=== PATIENT | male | born 1955 | race Caucasian/White ===

== ENCOUNTER 2016-10-10 15:46 | Inpatient (IN) | payer OTHER ==
[~2016-10-10] VITALS: Ht 160 cm; Wt 110.0 kg
[2016-10-10 17:15] LABS: ADD SCAN DIFF NO
[2016-10-10 17:21] LABS: ABNORMAL IP MESSAGE 1; HEMATOCRIT 23.6 % (42.0-52.0); MEAN CORPUSCULAR HEMOGLOBIN 16.7 pg (29.0-33.0); MEAN CORPUSCULAR HGB CONC 25.8 g/dl (32.0-37.0); MEAN CORPUSCULAR VOLUME 64.7 fl (82.0-101.0); MEAN PLATELET VOLUME 9.4 fl (7.4-10.4); PLATELET COUNT 339 10^3/UL (140-415); RED BLOOD COUNT 3.65 10^6/ul (4.70-6.10); WHITE BLOOD COUNT 7.9 10^3/ul (4.8-10.8)
[2016-10-10 17:23] LABS: HEMOGLOBIN 6.1 g/dl (14.0-18.0)
[2016-10-10 17:33] LABS: INR 1.1; PROTIME 14.2 Sec (12.2-14.2); PT RATIO 1.1
--- NOTE | 2016-10-10 17:33 | ERA ---
ER Documentation Chief Complaint Date/Time DATE: 10/10/16 TIME: 17:32 Chief Complaint CHEST PAIN AND SOB X 10 DAYS HPI 61-year-old man complains of sharp nonexertional nonradiating chest pain and dyspnea on exertion for about 2 weeks. He also complains of generalized weakness 1 week, he denies recent calf or leg swelling, no fevers or chills, no blood per rectum or melena, no abdominal pain, no vomiting or diarrhea. ROS All systems reviewed and are negative except as per history of present illness. PMhx/Soc Obesity, hypertension Hx Alcohol Use: No Hx Substance Use: No Hx Tobacco Use: No Smoking Status: Never smoker FmHx Family History: No diabetes Physical Exam Vitals Vital Signs Date Time Temp Pulse Resp B/P Pulse Ox O2 Delivery O2 Flow Rate FiO2 10/10/16 15:50 99.2 89 18 131/68 98 Physical Exam GENERAL: Well-developed, well-nourished, well-hydrated, in no apparent distress , looks nontoxic in appearance, afebrile HEENT: Pale conjunctiva, no cervical spine tenderness or step-off deformities, no goiter, no jaundice or icterus, extraocular movements intact without pain. No submandibular induration, and no pharyngeal erythema NEURO: Alert and oriented 3, cranial nerves II through XII intact bilaterally, pupils equal round reactive to light, no focal deficits or facial asymmetry, sensation intact distally Strength 5/5 in upper and lower extremities bilaterally CARDIAC: Regular rate and rhythm, no murmurs rubs or gallops LUNGS: Clear bilaterally no wheezing crackles or stridor ABDOMEN: Soft nontender, no guarding, no rigidity, no rebound, no psoas sign no obturator sign. Normoactive bowel sounds SKIN: Warm and dry to touch, no abrasions, contusions, or hematomas, no lacerations, no ecchymosis, no target lesions, and without ulcers EXTREMITIES: 3+ pitting edema in the lower extremities bilaterally, calves are bilaterally symmetrical no Homans sign, no popliteal cord sign. Distal pulses equal and bilateral PSYCH: Normal affect without agitation or irritability Result Diagram: 10/10/16 1656 10/10/16 1656 Results 24 hrs Laboratory Tests Test 10/10/16 16:56 White Blood Count 7.910^3/ul Red Blood Count 3.6510^6/ul Hemoglobin 6.1g/dl Hematocrit 23.6% Mean Corpuscular Volume 64.7fl Mean Corpuscular Hemoglobin 16.7pg Mean Corpuscular Hemoglobin Concent 25.8g/dl Red Cell Distribution Width 20.0% Platelet Count 45818^3/UL Mean Platelet Volume 9.4fl Prothrombin Time 14.2Sec Prothrombin Time Ratio 1.1 INR International Normalized Ratio 1.10 Sodium Level 140mmol/L Potassium Level 4.1mmol/L Chloride Level 108mmol/L Carbon Dioxide Level 26mmol/L Anion Gap 10 Blood Urea Nitrogen 15mg/dl Creatinine 0.77mg/dl Glucose Level 107mg/dl Calcium Level 8.8mg/dl Total Bilirubin 0.9mg/dl Direct Bilirubin 0.00mg/dl Indirect Bilirubin 0.9mg/dl Aspartate Amino Transf (AST/SGOT) 18IU/L Alanine Aminotransferase (ALT/SGPT) 25IU/L Alkaline Phosphatase 114IU/L Troponin I < 0.012ng/ml B-Type Natriuretic Peptide 153PG/ML Total Protein 7.0g/dl Albumin 4.2g/dl Globulin 2.80g/dl Albumin/Globulin Ratio 1.50 Lipase 84U/L Procedures/MDM IV line was established patient was placed on surveillance monitor rhythm strip revealed a sinus rhythm at about 80 bpm with upright P and T waves. Patient was afebrile. EKG performed, read by me: 88 bpm, normal sinus rhythm, normal axis, no acute ST segment changes, narrow QRS complex, with good R-wave progression in precordial leads. Chest X-ray 1V Interpreted by me: Soft Tissue: No acute abnormalities Bones: No acute abnormalities Mediastinum/Cardiac Silhouette/Lungs: Cardiomegaly although mediastinum otherwise unremarkable CBC revealed anemia with a hemoglobin of 6.1, electrolytes were unremarkable, liver function tests were normal, troponin was negative. Coagulation profile was normal. I ordered transfusion and 2 units of PRBCs IV over 2 hours for severe symptomatic anemia. Critical Care: Time: 40 minutes, this was time separate from other procedures. Treatments/Evaluations: Close monitoring and treatment of unstable vital signs, cardiorespiratory, and neurologic status, while maintaining tight balance of fluid, respiratory, and cardiac interventions. Patient will be admitted to telemetry setting for complaints of chest pain and severe anemia. Departure Diagnosis: Primary Impression: Chest pain Qualified Code: R07.9 - Chest pain, unspecified type Additional Impressions: Anemia Qualified Code: D64.9 - Anemia, unspecified type Peripheral edema Condition: DAVIAN Sanders MD Oct 10, 2016 17:33
[2016-10-10 17:39] LABS: ALANINE AMINOTRANSFERASE 25 IU/L (13-69); ALBUMIN 4.2 g/dl (3.3-4.9); ALKALINE PHOSPHATASE 114 IU/L (42-121); ANION GAP 10 (8-16); ASPARTATE AMINO TRANSFERASE 18 IU/L (15-46); BILIRUBIN,INDIRECT 0.9 mg/dl (0-1.1); BILIRUBIN,TOTAL 0.9 mg/dl (0.2-1.3); BLOOD UREA NITROGEN 15 mg/dl (7-20); CALCIUM 8.8 mg/dl (8.4-10.2); CARBON DIOXIDE 26 mmol/L (21-31); CHLORIDE 108 mmol/L (97-110); CREATININE 0.77 mg/dl (0.61-1.24); GLUCOSE 107 mg/dl (70-220); POTASSIUM 4.1 mmol/L (3.5-5.1); SODIUM 140 mmol/L (135-144)
--- NOTE | 2016-10-10 17:50 | RADRPT ---
PROCEDURE: Chest x-ray CLINICAL INDICATION: Chest pain TECHNIQUE: Chest single view COMPARISON: None FINDINGS: There is right IJ Port-A-Cath. Heart. Normal in size. Pulmonary vessels are normal in caliber. T here is minimal basilar atelectasis. Lungs otherwise clear. Costophrenic angles are sharp. There is degenerative change of bilateral acromioclavicular joints. There is right rotator cuff calcific tendinosis. IMPRESSION: 1. Mild bibasilar atelectasis. Otherwise no acute cardiopulmonary disease. 2. Port-A-Cath in place. 3. Other findings as detailed RPTAT: HH .Mykel Forrest MD, Date Time Electronically viewed and signed by .Mykel Forrest MD, on 10/10/2016 17:50 .W/
[2016-10-10 17:51] LABS: B-TYPE NATRIURETIC PEPTIDE 153 PG/ML (0-125); TROPONIN-I < 0.012 ng/ml (0.00-0.12)
[2016-10-10 18:06] LABS: BASOPHIL # 0.1 10^3/ul (0.0-0.1); EOSINOPHILS # 0.2 10^3/ul (0.0-0.5); LYMPHOCYTES # 1.7 10^3/ul (0.8-2.9); MONOCYTE # 0.6 10^3/ul (0.3-0.9); NEUTROPHIL # 5.3 10^3/ul (1.6-7.5)
[2016-10-10 18:07] LABS: HYPOCHROMASIA 2+; MICROCYTOSIS 2+
[2016-10-10 19:20] LABS: IRON 20 ug/dl (35-150)
[2016-10-10 19:35] LABS: TOTAL IRON BINDING CAPACITY 442 ug/dl (241-421)
[2016-10-10 21:00] VITALS: TEMP 98.3
[2016-10-10 21:15] VITALS: PULSE 68
[2016-10-10 21:29] VITALS: BP 137/77; RESP 20
[2016-10-10 22:01] VITALS: Ht 160 cm; Wt 110.0 kg
[2016-10-10] MEDS ORDERED: morphine 2 MG INJ IV PRN (23:00)
[2016-10-10] MEDS ORDERED: ONDANSETRON 4 MG INJ IV PRN (23:00)
[2016-10-10] MEDS ORDERED: ACETAMINOPHEN 325 MG TAB PO PRN (23:00)
[2016-10-11] VITALS (12 sets, daily range): BP systolic 117–133; BP diastolic 61–78; PULSE 65–75; RESP 16–66
[2016-10-11] MEDS: PANTOPRAZOLE (EC) 40 MG TAB PO SCH (05:17)
[2016-10-11 07:45] LABS: ADD SCAN DIFF NO
[2016-10-11 07:49] LABS: ABNORMAL IP MESSAGE 1; BASOPHIL # 0.1 10^3/ul (0.0-0.1); BASOPHILS % 0.8 % (0.0-2.0); EOSINOPHILS # 0.2 10^3/ul (0.0-0.5); EOSINOPHILS % 3.4 % (0.0-7.0); HEMOGLOBIN 7.7 g/dl (14.0-18.0); LYMPHOCYTES # 1.7 10^3/ul (0.8-2.9); LYMPHOCYTES % 23.2 % (15.0-51.0); MEAN CORPUSCULAR HEMOGLOBIN 18.5 pg (29.0-33.0); MEAN CORPUSCULAR HGB CONC 27.5 g/dl (32.0-37.0); MEAN CORPUSCULAR VOLUME 67.1 fl (82.0-101.0); MEAN PLATELET VOLUME 9.2 fl (7.4-10.4); MONOCYTE # 0.6 10^3/ul (0.3-0.9); NEUTROPHIL # 4.5 10^3/ul (1.6-7.5); NEUTROPHILS % 63.2 % (39.0-77.0); PLATELET COUNT 288 10^3/UL (140-415); RED BLOOD COUNT 4.17 10^6/ul (4.70-6.10); RED CELL DISTRIBUTION WIDTH 21.4 % (11.5-14.5); WHITE BLOOD COUNT 7.1 10^3/ul (4.8-10.8)
[2016-10-11 08:17] LABS: CALCIUM 8.3 mg/dl (8.4-10.2); CHOL/HDL RATIO 4.5 RATIO; CREATININE 0.73 mg/dl (0.61-1.24); POTASSIUM 4.1 mmol/L (3.5-5.1)
[2016-10-11] MEDS: FERROUS SULFATE (EC) 325 MG TAB PO SCH ×2 (09:03→21:03)
[2016-10-11] MEDS ORDERED: SOD CHLORIDE 0.9% 250 ML IV* ONE (09:52)
[2016-10-11] MEDS ORDERED: DOCUSATE SODIUM 100 MG CAP PO PRN (10:00)
[2016-10-11 12:57] LABS: CREATINE KINASE 66 IU/L (23-200)
[2016-10-11 13:15] LABS: CK-MB 0.27 ng/ml (0.0-2.4); TROPONIN-I < 0.012 ng/ml (0.00-0.12)
--- NOTE | 2016-10-11 13:39 | RADRPT ---
Echocardiogram Report Patient Name: YENY RENEE Gender: Male Date: 1955 Study Date: 11-Oct-2016 Sales Representative Printing Paper: Berna Borja [facility] Location: 5540 Ref. Physician: HIWOT BROWN Quality: Good Procedures: Transthoracic echocardiogram with complete 2D, M-Mode, and doppler examination. Indications: Chest Pain. 2D/M Mode Doppler Measurement Value Normal Ranges Measurement Value Normal Ranges LVIDd 2D 4.7 3.5 - 5.6 cm AV Peak Salvador 1.7 m/sec LVIDs 2D 2.8 2.1 - 4.1 cm AV Peak PG 12.0 mmHg FS 2D 41.0 % LVOT Peak Salvador 1.4 m/sec LVPWd 2D 0.9 0.6 - 1.1 cm LVOT Peak PG 8.0 mmHg IVSd 2D 1.1 0.6 - 1.1 cm MV E Peak Salvador 0.7 m/sec IVS/LVPW 2D 1.2 MV A Peak Salvador 1.1 m/sec AoR Diam 2D 3.4 2.0 - 3.7 cm MV E/A 0.7 LA/Ao 2D 1 0 - 1 MV Decel Time 257 msec EDV 2D 106.0 cm3 MV E/A 0.7 ESV 2D 21.7 cm3 TR Peak Salvador 2.2 m/sec LA Dimen 2D 3.2 2.3 - 4.0 cm TR Peak PG 19.0 mmHg RVSP 22.0 mmHg Findings Left Ventricle: Normal left ventricular systolic function. Normal left ventricular cavity size. Mild concentric left ventricular hypertrophy. Ejection fraction is visually estimated at 60 %. Tissue Doppler/Mitral Doppler indices are consistent with impaired relaxation (Stage I diastolic dysfunction). Right Ventricle: Normal right ventricular size. Normal right ventricular systolic function. Left Atrium: The left atrium is normal in size. Right Atrium: The right atrium is normal in size. Mitral Valve: Mitral valve leaflets appear mildly thickened. Mild mitral annular calcification. Trace mitral regurgitation. Aortic Valve: Normal appearance of the aortic valve. No significant aortic stenosis or insufficiency. Tricuspid Valve: Normal appearance of the tricuspid valve. Estimated peak PA systolic pressure 22 mmHg. There is trace tricuspid regurgitation. Pulmonic Valve: Normal pulmonic valve appearance. Pericardium: Normal pericardium with no significant pericardial effusion. Aorta: Normal aortic root. IVC: Normal size and normal respiratory collapse consistent with normal right atrial pressure. Conclusions Normal left ventricular systolic function. Normal left ventricular cavity size. Mild concentric left ventricular hypertrophy. Ejection fraction is visually estimated at 60 %. Tissue Doppler/Mitral Doppler indices are consistent with impaired relaxation (Stage I diastolic dysfunction). Normal right ventricular size. Normal right ventricular systolic function. The left atrium is normal in size. The right atrium is normal in size. No significant valvular stenosis or regurgitation seen. Normal pericardium with no significant pericardial effusion. Electronically Signed By: Marin Dang 11-Oct-2016 13:38:28 -0700 Patient Name: YENY RENEE Study Date: 11-Oct-2016 [id number]
--- NOTE | 2016-10-11 13:45 | CONS ---
Date/Time of Note Date/Time of Note DATE: 10/11/16 TIME: 13:40 Assessment/Plan Assessment/Plan Additional Assessment/Plan Chest pain Acute blood loss anemia, severe Preserved ejection fraction Colon cancer Hypertension -Patient with severe anemia with hemoglobin of 6. Serial troponins remain negative, ECG with no significant ischemic abnormalities, echocardiogram with preserved ejection fraction. His symptoms of lightheadedness and shortness of breath are improving after blood transfusion. Patient will colon cancer with last chemotherapy in June 2016 and with possible metastases to liver. Given patient with severe anemia and negative cardiac workup, of importance at the current time is blood transfusion ideally to hemoglobin close to 10. Beta- juju as blood pressure permits and statin therapy. No antiplatelet therapy at the current time given severe anemia. As long as symptoms continue to improve with blood transfusion, no further inpatient cardiac workup needed at the current time. Consultation Date/Type/Reason Admit Date/Time Oct 10, 2016 at 17:49 Type of Consultation: cv Reason for Consultation Chest pain Hx of Present Illness This is a 61-year-old male with past medical history of colon cancer status post chemotherapy with last treatment in June 2016, hypertension who presents with chest pain and shortness of breath. Patient with symptoms of shortness of breath at times with lying down flat but worse with exertion. Over the past 10 days, patient with exertional chest pain and shortness of breath which resolves at rest. He also complains of dizziness and lightheadedness with standing up. He denies any abdominal pain, nausea. Because of the above symptoms, he came to the emergency room for evaluation and care. Patient found to be severely anemic and is undergoing blood transfusion. He is currently feeling better. He is having less lightheadedness with standing up. Currently denies any chest pain or shortness of breath. 12 point review of systems was performed with all pertinent positives and negatives mentioned above and all else is negative Past Medical History Colon cancer Medical History: hypertension Family History Significant Family History: no pertinent family hx Social History Smoking Status: Never smoker Exam/Review of Systems Vital Signs Vitals Vital Signs Date Time Temp Pulse Resp B/P Pulse Ox O2 Delivery O2 Flow Rate FiO2 10/11/16 12:34 66 10/11/16 11:29 98.4 18 132/72 97 10/10/16 21:00 Room Air Intake and Output 10/10/16 10/10/16 10/11/16 15:00 23:00 07:00 Intake Total 1200 ml Output Total 250 ml Balance 950 ml Exam No apparent distress, undergoing blood transfusion Constitutional: alert, obese, oriented Head: normocephalic Neck: supple Respiratory: clear to auscultation, normal air movement Cardiovascular: other (S1-S2 heard, no murmurs appreciated), regular rate and rhythm Gastrointestinal: bowel sounds, non-tender, other (No guarding), soft Extremities: other (No significant edema) Results Result Diagram: 10/11/16 0610 10/11/16 0610 Results 24 hrs Laboratory Tests Test 10/10/16 16:50 10/10/16 16:56 10/10/16 23:25 10/11/16 05:20 Iron Level 20 L Total Iron Binding Capacity 442 H Percent Iron Saturation 5 L White Blood Count 7.9 Red Blood Count 3.65 L Hemoglobin 6.1 *L Hematocrit 23.6 L Mean Corpuscular Volume 64.7 L Mean Corpuscular Hemoglobin 16.7 L Mean Corpuscular Hemoglobin Concent 25.8 L Red Cell Distribution Width 20.0 H Platelet Count 339 Mean Platelet Volume 9.4 Neutrophils % 67.0 Lymphocytes % 22.0 Monocytes % 7.0 Eosinophils % 3.0 Basophils % 1.0 Nucleated Red Blood Cells % 1.0 H Neutrophils # 5.3 Lymphocytes # 1.7 Monocytes # 0.6 Eosinophils # 0.2 Basophils # 0.1 Hypochromasia 2+ Microcytosis 2+ Prothrombin Time 14.2 Prothrombin Time Ratio 1.1 INR International Normalized Ratio 1.10 Sodium Level 140 Potassium Level 4.1 Chloride Level 108 Carbon Dioxide Level 26 Anion Gap 10 Blood Urea Nitrogen 15 Creatinine 0.77 Glucose Level 107 Calcium Level 8.8 Total Bilirubin 0.9 Direct Bilirubin 0.00 Indirect Bilirubin 0.9 Aspartate Amino Transf (AST/SGOT) 18 Alanine Aminotransferase (ALT/SGPT) 25 Alkaline Phosphatase 114 Troponin I < 0.012 < 0.012 B-Type Natriuretic Peptide 153 H Total Protein 7.0 Albumin 4.2 Globulin 2.80 Albumin/Globulin Ratio 1.50 Lipase 84 Lab Scanned Report BLOOD TRANSFUSION Test 10/11/16 06:10 10/11/16 12:10 White Blood Count 7.1 Red Blood Count 4.17 L Hemoglobin 7.7 #L Hematocrit 28.0 L Mean Corpuscular Volume 67.1 L Mean Corpuscular Hemoglobin 18.5 L Mean Corpuscular Hemoglobin Concent 27.5 L Red Cell Distribution Width 21.4 H Platelet Count 288 Mean Platelet Volume 9.2 Neutrophils % 63.2 Lymphocytes % 23.2 Monocytes % 9.0 Eosinophils % 3.4 Basophils % 0.8 Nucleated Red Blood Cells % 0.0 Neutrophils # 4.5 Lymphocytes # 1.7 Monocytes # 0.6 Eosinophils # 0.2 Basophils # 0.1 Nucleated Red Blood Cells # 0.0 Sodium Level 142 Potassium Level 4.1 Chloride Level 111 H Carbon Dioxide Level 25 Anion Gap 10 Blood Urea Nitrogen 12 Creatinine 0.73 Glucose Level 95 Calcium Level 8.3 L Troponin I < 0.012 < 0.012 Triglycerides Level 110 Cholesterol Level 127 LDL Cholesterol, Calculated 77 HDL Cholesterol 28 L Cholesterol/HDL Ratio 4.5 Carcinoembryonic Antigen 414.0 H Creatine Kinase 66 Creatine Kinase Index 0.4 Creatinine Kinase MB (Mass) 0.27 Medications Medications Current Medications Ferrous Sulfate (Ferrous Sulfate (Ec)) 325 mg BID PO Last administered on 09:03; Admin Dose 325 MG; Start 10/11/16 at 09:00 Acetaminophen (Tylenol Tab) 650 mg Q6H PRN PO PAIN AND OR ELEVATED TEMP; Start 10/10/16 at 23:00 Ondansetron HCl (Zofran Inj) 4 mg Q4H PRN IV NAUSEA AND/OR VOMITING; Start 10/10 at 23:00 Morphine Sulfate (morphine) 2 mg Q2H PRN IV PAIN; Start 10/10/16 at 23:00 Pantoprazole (Protonix Tab) 40 mg DAILY@06 PO Last administered on 10/11/16 05: 17; Admin Dose 40 MG; Start 10/11/16 at 06:00 Docusate Sodium (Colace) 100 mg BID PRN PO CONSTIPATION; Start 10/11/16 at 10:00 Procedures Procedures ECG demonstrates sinus rhythm at 69 bpm, QRS 104 ms, nonspecific STT wave abnormalities Marin Dang DO Oct 11, 2016 13:45
--- NOTE | 2016-10-11 14:09 | PDOCDIS ---
Discharge Instructions CONDITION Patient Condition: Stable HOME CARE INSTRUCTIONS: Special Diet: LOW CHOL/ LOW FAT/ NO CAFFEINE ACTIVITY: Activity Restrictions: Slowly Increase Activity Avoid heavy lifting Do not operate Machinery Do not operate Power Tool Avoid Heavy Housework FOLLOW UP/APPOINTMENTS Appointments Follow up with PCP within 1 week Follow up with Dr Desir within 1 to 2 weeks MARK BROWN Oct 11, 2016 14:09
[2016-10-11] MEDS ORDERED: DOCU-216 PO (14:11)
[2016-10-11] MEDS ORDERED: PANT40TA4 PO (14:11)
[2016-10-11] MEDS ORDERED: FER325 PO (14:11)
[2016-10-11] MEDS ORDERED: METO-448 PO (14:11)
[2016-10-11] MEDS ORDERED: ATOR20TA65 PO (14:11)
--- NOTE | 2016-10-11 14:51 | HP ---
DATE OF ADMISSION: 10/10/2016 CONSULTATION DONE ON THIS ADMISSION: Dr. Dang CHIEF COMPLAINT ON ADMISSION: Chest pain and exertional shortness of breath. HISTORY OF PRESENT ILLNESS: This is a 61-year-old male with a history of metastatic colon cancer, a pparently recently told that he has metastatic disease to the liver. This is after he completed the chemotherapy in June, previous chronic anemia while he was doing his chemotherapy. He was taki ng iron supplements at that point, but he stopped it, morbid obesity, but has lost some weight from what he is reporting who presented to the emergency department with complaints of exertional chest p ain, substernal, radiating to his neck, exertional shortness of breath, generalized weakness, easy f atigue, some episodes of dizziness when he stands up. His laboratory data showed a severe anemia wi th a hemoglobin of 6.1. The patient denies any hematemesis, nausea, vomiting, or difficulty tolerat ing p.o. He denies any melena or hematochezia. He last saw his oncologist in June and was told he was going to start a different regimen of chemotherapy based on findings of metastatic disease t o his liver. He denies any abdominal pain. When asked about his cardiac history, he denies any pre vious cardiac history; however, he is describing having a procedure done back in 1999 that may have been angiogram. It is unclear if this is just a vessel angiogram versus cardiac angiogram, and he r eports that he was told that he had blocked vessels. The symptoms he presented with, he has been garcia ving for the past 10 days. He has received 2 units of packed red blood cells. He is getting his fo urth unit. Will check his hemoglobin afterwards. Cardiac enzymes are negative x4. His echocardiog maria elena is stable. Dr. Dang did evaluate the patient, and at this point due to the fact that he has s evere anemia, he is not a candidate for any invasive procedure or stress test, especially when his s ymptoms are resolved and his EKG is within normal. I will contact the patient's oncologist as the p atient may need additional workup regarding his colon cancer. He CEA is elevated at 404. The quest ion is if he needs or endoscopy or with his known diagnosis of colon cancer he just needs additional chemotherapy. ALLERGIES: NO KNOWN ALLERGIES. PAST MEDICAL HISTORY: 1. Metastatic colon cancer, has been through chemotherapy until June 2016. Apparently currentl y the patient is not getting any further chemotherapy while awaiting a new regimen. 2. Hypertension. PAST SURGICAL HISTORY: Status post right knee replacement in 2015 at [facility]. SOCIAL HISTORY: The patient denies any alcohol or tobacco use. REVIEW OF SYSTEMS: As per HPI. OUTPATIENT MEDICATIONS: None. Of note, the patient stopped his iron supplements. PHYSICAL EXAMINATION: VITAL SIGNS: Temperature is 98.4, heart rate of 66, sinus rhythm, respiratory rate of 18, blood pre ssure is 132/72, 97% on room air. GENERAL: He is alert and oriented x4. He is in no acute distress. HEENT: Pupils are equally round and reactive to light. Extraocular muscles are intact. Anicteric sclerae. NECK: No JVD. No thyromegaly. HEART: Regular rate and rhythm. No murmur, rubs, or gallops. LUNGS: Clear to auscultation bilaterally. ABDOMEN: Soft, nontender, slightly distended versus obese. The patient was complaining of discomfo rt on the left upper quadrant area. EXTREMITIES: No edema, clubbing, or cyanosis. NEUROLOGIC: Grossly intact. LABORATORY DATA: White blood cell count 7.1, hemoglobin 7.7 after 2 units of packed red blood cells . The patient is getting 2 additional units, hematocrit of 28.0, platelets of 288. Chemistry with a sodium of 142, potassium 4.1, chloride 101, bicarbonate 25, BUN 12, creatinine 0.72, glucose of 95 , calcium of 8.3. Cardiac enzymes, troponin negative x4. CK, CK-MB within normal. LFTs are within normal. CEA is at 414, cholesterol of 127, LDL is 77 with an HDL of 28. INR is 1.10 with a PT of 14.2. RADIOLOGICAL DATA: The patient had a chest x-ray that showed mild basilar atelectasis. No cardiopu lmonary disease. Port-A-Cath in place. We will obtain a CAT scan of his abdomen and pelvis in order to further evaluate his additional intr aabdominal mets. EKG is normal sinus rhythm, no acute changes. ASSESSMENT AND PLAN: This is a 61-year-old male with: 1. Chest pain, chest pressure, exertional shortness of breath, in the setting of severe anemia. Hi s EKG is within normal. Troponins are negative. A 2-D echocardiogram is stable and normal accordin g to cardiology. No further evaluation at this point, just correction of his anemia with hemoglobin target close to 10. 2. Severe anemia, iron deficient, with known metastatic colon cancer. The patient denies any overt bleeding. I will check a CAT scan of the abdomen and pelvis to rule out any internal bleeding. If the CT of the abdomen and pelvis is negative, the patient will be discharged and follow up with his oncologist regarding his additional chemotherapy needed. Will repeat his H and H after a total of 4 units of packed red blood cells. 3. Hypertension. The patient has been started on metoprolol. 4. Hyperlipidemia. He also has been started on Lipitor. 5. Prophylaxis. SCDs to lower extremities for DVT prophylaxis and Protonix for GI prophylaxis. DISPOSITION: We will complete blood transfusion. Follow up CAT scan of the abdomen and pelvis for discharge planning. Dictated By: MARK CAMPBELL/LUCY Conf#: [id number] DID#: [id number]
[2016-10-11] MEDS ORDERED: ATORVASTATIN 20 MG TAB PO SCH (21:00)
[2016-10-11] MEDS: METOPROLOL 25 MG TAB PO SCH (21:04)
[2016-10-12] VITALS (8 sets, daily range): BP systolic 125–131; BP diastolic 76–80; PULSE 53–62; RESP 16–22
--- NOTE | 2016-10-12 01:09 | RADRPT ---
PROCEDURE: CT Abdomen and pelvis without contrast. CLINICAL INDICATION: Abdominal pain. TECHNIQUE: CT scan of the abdomen and pelvis was performed on a multi-detector high-resolution CT scanner. Contiguous axial images were obtained from the lung bases to the ischial tuberosities wit hout intravenous contrast. Coronal and sagittal reformatted images were also obtained. Images were reviewed on the PACS workstation. One or more of the following dose reduction techniques were used: - Automated exposure control. - Adjustment of the mA and/or kV according to patient size. - Use of iterative reconstruction technique. Exam CTD/vol = 23.38 mGy. Total exam DLP = 1402.77 mGy-cm. COMPARISON: None. FINDINGS: Evaluation of the lung bases demonstrates mild bibasilar atelectasis. There are multiple nodules wi thin bilateral lung bases measuring up to 7 mm in size. Abdomen: The liver is normal in size. There is a poorly defined hypodense lesion essentially withi n the liver measuring 8.5 x 8.4 cm. There is a hypodense lesion within the posterior segment of the right lobe of the liver measuring 3.1 x 3.0 cm. There is no dilatation of the biliary tree. The g allbladder is not distended. The spleen, pancreas and bilateral adrenal glands are within normal li mits. Bilateral kidneys are normal in size with no contour deforming mass identified. There is no radiopaque renal or ureteral calculus identified. There is no hydronephrosis or hydroureter. There is no retroperitoneal adenopathy. The abdominal aorta is of normal caliber with mild scattered ath erosclerotic calcifications. There is no abnormal bowel wall thickening or distension. There is no bowel obstruction or free air . A diminutive appendix is identified. There is colonic diverticulosis without evidence of diverti culitis. There is no ascites. Pelvis: The bladder is unremarkable. The prostate and seminal vesicles are within normal limits. There is no significant pelvic adenopathy or free fluid. Evaluation of the osseous structures demonstrates no suspicious lytic or blastic lesion. IMPRESSION: Multiple poorly defined hypodense masses within the liver with the largest seen centrally measuring 8.5 x 8.4 cm suspicious for neoplastic/metastatic disease. Multiple small pulmonary metastases. Mild bibasilar atelectasis. Mild vascular calcifications reflective of atherosclerosis. Colonic diverticulosis without evidence of diverticulitis. .Tyron Orozco MD, MD Date Time Electronically viewed and signed by .Tyron Orozco MD, MD on 10/12/2016 01:09 .T/
[2016-10-12] MEDS: PANTOPRAZOLE (EC) 40 MG TAB PO SCH (05:09)
[2016-10-12 07:29] LABS: ADD SCAN DIFF NO
[2016-10-12 07:43] LABS: ABNORMAL IP MESSAGE 1; BASOPHIL # 0.1 10^3/ul (0.0-0.1); BASOPHILS % 0.8 % (0.0-2.0); EOSINOPHILS # 0.2 10^3/ul (0.0-0.5); EOSINOPHILS % 2.7 % (0.0-7.0); HEMATOCRIT 32.9 % (42.0-52.0); HEMOGLOBIN 9.3 g/dl (14.0-18.0); LYMPHOCYTES # 1.8 10^3/ul (0.8-2.9); LYMPHOCYTES % 21.2 % (15.0-51.0); MEAN CORPUSCULAR HEMOGLOBIN 19.7 pg (29.0-33.0); MEAN CORPUSCULAR HGB CONC 28.3 g/dl (32.0-37.0); MEAN CORPUSCULAR VOLUME 69.6 fl (82.0-101.0); MEAN PLATELET VOLUME 9.5 fl (7.4-10.4); MONOCYTE # 0.8 10^3/ul (0.3-0.9); MONOCYTES % 9.5 % (0.0-11.0); NEUTROPHIL # 5.7 10^3/ul (1.6-7.5); NEUTROPHILS % 65.5 % (39.0-77.0); PLATELET COUNT 300 10^3/UL (140-415); RED BLOOD COUNT 4.73 10^6/ul (4.70-6.10); RED CELL DISTRIBUTION WIDTH 23.9 % (11.5-14.5); WHITE BLOOD COUNT 8.6 10^3/ul (4.8-10.8)
[2016-10-12] MEDS: METOPROLOL 25 MG TAB PO SCH (08:15)
[2016-10-12] MEDS: FERROUS SULFATE (EC) 325 MG TAB PO SCH (08:16)
--- NOTE | 2016-10-12 11:10 | PN ---
Date/Time of Note Date/Time of Note DATE: 10/12/16 TIME: 11:03 Assessment/Plan VTE Prophylaxis VTE Prophylaxis Intervention: SCD's Lines/Catheters IV Catheter Type (from Nrs): port-a-cath Urinary Cath still in place: No Assessment/Plan Assessment/Plan 61 yo male with: 1. Chest pain, chest pressure, exertional shortness of breath, in the setting of severe anemia. Asymptomatic s/p 4 units pRBC EKG wnl His EKG is within normal. Trop wnl 2D echo wnl 2. Severe anemia, iron deficient, with known metastatic colon cancer. No overt or internal bleeding S/p [address] with Liver mets and Pulmonary mets, will need outpatient PET CT likely D/c home and f/u with Dr Karlee RENE Continue FeSO4 3. Hypertension. Continue metoprolol. 4. Hyperlipidemia. Continue Lipitor. Prophylaxis: SCDs to lower extremities for DVT prophylaxis and Protonix for GI prophylaxis. DISPOSITION: D/c home today with follow up with PCP and Oncology within 1 week Subjective 24 Hr Interval Summary Free Text/Dictation Patient stable and Hb stable post transfusion D/c home with PCP and Oncology follow up Exam/Review of Systems Vital Signs Vitals Vital Signs Date Time Temp Pulse Resp B/P Pulse Ox O2 Delivery O2 Flow Rate FiO2 10/12/16 08:05 61 10/12/16 07:39 97.9 18 126/76 97 10/10/16 21:00 Room Air Intake and Output 10/11/16 10/11/16 10/12/16 15:00 23:00 07:00 Intake Total 760 ml 500 ml Output Total 600 ml Balance 160 ml 500 ml Exam Constitutional: alert, obese, oriented, well developed Respiratory: clear to auscultation, normal air movement Cardiovascular: nl pulses, regular rate and rhythm Gastrointestinal: non-tender, soft Musculoskeletal: nl extremities to inspection Extremities: normal pulses, other (no edema, clubbing or cyanosis ) Neurological: [employer] II-XII intact, nl mental status, nl speech, nl strength Results Result Diagram: 10/12/16 0712 10/11/16 0610 Results 24 hrs Laboratory Tests Test 10/11/16 12:10 10/11/16 23:00 10/12/16 05:13 10/12/16 07:12 Creatine Kinase 66 Creatine Kinase Index 0.4 Creatinine Kinase MB (Mass) 0.27 Troponin I < 0.012 < 0.012 Lab Scanned Report BLOOD TRANSFUSION White Blood Count 8.6 # Red Blood Count 4.73 Hemoglobin 9.3 #L Hematocrit 32.9 L Mean Corpuscular Volume 69.6 L Mean Corpuscular Hemoglobin 19.7 L Mean Corpuscular Hemoglobin Concent 28.3 L Red Cell Distribution Width 23.9 H Platelet Count 300 Mean Platelet Volume 9.5 Neutrophils % 65.5 Lymphocytes % 21.2 Monocytes % 9.5 Eosinophils % 2.7 Basophils % 0.8 Nucleated Red Blood Cells % 0.0 Neutrophils # 5.7 Lymphocytes # 1.8 Monocytes # 0.8 Eosinophils # 0.2 Basophils # 0.1 Nucleated Red Blood Cells # 0.0 Medications Medications Current Medications Ferrous Sulfate (Ferrous Sulfate (Ec)) 325 mg BID PO Last administered on 08:16; Admin Dose 325 MG; Start 10/11/16 at 09:00 Acetaminophen (Tylenol Tab) 650 mg Q6H PRN PO PAIN AND OR ELEVATED TEMP Last administered on 10/12/16 00:12; Admin Dose 650 MG; Start 10/10/16 at 23:00 Ondansetron HCl (Zofran Inj) 4 mg Q4H PRN IV NAUSEA AND/OR VOMITING; Start 10/10 at 23:00 Morphine Sulfate (morphine) 2 mg Q2H PRN IV PAIN; Start 10/10/16 at 23:00 Pantoprazole (Protonix Tab) 40 mg DAILY@06 PO Last administered on 10/12/16 05: 09; Admin Dose 40 MG; Start 10/11/16 at 06:00 Docusate Sodium (Colace) 100 mg BID PRN PO CONSTIPATION; Start 10/11/16 at 10:00 Atorvastatin Calcium (Lipitor) 20 mg HS PO Last administered on 10/11/16 21:03 ; Admin Dose 20 MG; Start 10/11/16 at 21:00 Metoprolol Tartrate (Lopressor) 12.5 mg BID PO Last administered on 10/11/16 21 :04; Admin Dose 12.5 MG; Start 10/11/16 at 21:00 MARK BROWN Oct 12, 2016 11:10
--- NOTE | 2016-10-12 11:37 | CONS ---
Date/Time of Note Date/Time of Note DATE: 10/12/16 TIME: 11:35 Assessment/Plan Assessment/Plan Additional Assessment/Plan Chest pain Acute blood loss anemia, severe Preserved ejection fraction Colon cancer with metastases Hypertension -Patient feeling much better after blood transfusion and denies any chest pain or shortness of breath at rest or with activity. Remains bradycardic on telemetry, would DC beta-juju. No antiplatelet therapy at the current time given severe anemia. No further inpatient cardiac workup needed at the current time. Consultation Date/Type/Reason Admit Date/Time Oct 10, 2016 at 17:49 Initial Consult Date Type of Consultation: cv 24 HR Interval Summary Free Text/Dictation Patient status post blood transfusion. Denies exertional chest pain or shortness of breath or dizziness. Feeling much better Exam/Review of Systems Vital Signs Vitals Vital Signs Date Time Temp Pulse Resp B/P Pulse Ox O2 Delivery O2 Flow Rate FiO2 10/12/16 11:29 97.6 65 22 129/80 97 10/10/16 21:00 Room Air Intake and Output 10/11/16 10/11/16 10/12/16 15:00 23:00 07:00 Intake Total 760 ml 500 ml Output Total 600 ml Balance 160 ml 500 ml Exam No apparent distress Constitutional: alert, obese, oriented Head: normocephalic Neck: supple Respiratory: other (Coarse breath sounds bilaterally, no wheezing) Cardiovascular: other (S1-S2 heard), regular rate and rhythm Gastrointestinal: bowel sounds, non-tender, soft Extremities: edema (Trace) Results Result Diagram: 10/12/16 0712 10/11/16 0610 Results 24 hrs Laboratory Tests Test 10/11/16 12:10 10/11/16 23:00 10/12/16 05:13 10/12/16 07:12 Creatine Kinase 66 Creatine Kinase Index 0.4 Creatinine Kinase MB (Mass) 0.27 Troponin I < 0.012 < 0.012 Lab Scanned Report BLOOD TRANSFUSION White Blood Count 8.6 # Red Blood Count 4.73 Hemoglobin 9.3 #L Hematocrit 32.9 L Mean Corpuscular Volume 69.6 L Mean Corpuscular Hemoglobin 19.7 L Mean Corpuscular Hemoglobin Concent 28.3 L Red Cell Distribution Width 23.9 H Platelet Count 300 Mean Platelet Volume 9.5 Neutrophils % 65.5 Lymphocytes % 21.2 Monocytes % 9.5 Eosinophils % 2.7 Basophils % 0.8 Nucleated Red Blood Cells % 0.0 Neutrophils # 5.7 Lymphocytes # 1.8 Monocytes # 0.8 Eosinophils # 0.2 Basophils # 0.1 Nucleated Red Blood Cells # 0.0 Medications Medications Current Medications Ferrous Sulfate (Ferrous Sulfate (Ec)) 325 mg BID PO Last administered on 08:16; Admin Dose 325 MG; Start 10/11/16 at 09:00 Acetaminophen (Tylenol Tab) 650 mg Q6H PRN PO PAIN AND OR ELEVATED TEMP Last administered on 10/12/16 00:12; Admin Dose 650 MG; Start 10/10/16 at 23:00 Ondansetron HCl (Zofran Inj) 4 mg Q4H PRN IV NAUSEA AND/OR VOMITING; Start 10/10 at 23:00 Morphine Sulfate (morphine) 2 mg Q2H PRN IV PAIN; Start 10/10/16 at 23:00 Pantoprazole (Protonix Tab) 40 mg DAILY@06 PO Last administered on 10/12/16 05: 09; Admin Dose 40 MG; Start 10/11/16 at 06:00 Docusate Sodium (Colace) 100 mg BID PRN PO CONSTIPATION; Start 10/11/16 at 10:00 Atorvastatin Calcium (Lipitor) 20 mg HS PO Last administered on 10/11/16 21:03 ; Admin Dose 20 MG; Start 10/11/16 at 21:00 Metoprolol Tartrate (Lopressor) 12.5 mg BID PO Last administered on 10/11/16 21 :04; Admin Dose 12.5 MG; Start 10/11/16 at 21:00 Marin Dang DO Oct 12, 2016 11:37
--- NOTE | 2016-10-12 17:50 | RADRPT ---
Vent Rate: 69 bpm RR Interval: 0 msec [place] Interval: 160 msec QRS Duration: 104 msec QT Interval: 408 msec QTC Interval: 437 msec P-R-T [place]: 50 - 17 - 48 degrees Normal sinus rhythm Normal ECG Electronically Signed By: Gurdeep Collins [id number]
== END 2016-10-12 15:30 | disposition home or self-care (01) | DRG 375 ==
LOC: E/R 15:46 → MS4 17:49
PROVIDERS: ADMIT Internal Medicine; ATTEND Internal Medicine
PROC: 30233N1 Transfusion of Nonautologous Red Blood Cells into Peripheral Vein, Percutaneous Approach (ICD-10-PCS; principal; 2016-10-10)
DX: C18.9 Malignant neoplasm of colon, unspecified (principal); C78.7 Secondary malignant neoplasm of liver and intrahepatic bile duct; D62 Acute posthemorrhagic anemia; Z68.41 Body mass index [BMI] 40.0-44.9, adult; D50.9 Iron deficiency anemia, unspecified; D63.0 Anemia in neoplastic disease; E66.01 Morbid (severe) obesity due to excess calories; I10 Essential (primary) hypertension; E78.5 Hyperlipidemia, unspecified; R07.9 Chest pain, unspecified
CPT/HCPCS: 36415; 36430; 71010; 74176; 80048; 80053; 80061; 82378; 82550; 82553; 83540; 83690; 83880; 84484; 85025; 85610; 86644; 86850; 86900; 86901; 86920; 86945; 93005; 93306; J7040; P9016

== ENCOUNTER 2017-07-21 10:29 | Emergency (ER) | END 2017-07-21 13:12 | disposition home or self-care (01) ==

== ENCOUNTER 2017-09-19 20:17 | Emergency (ER) | END 2017-09-20 07:00 | disposition short-term general hospital (02) ==